=== PATIENT | male | born 1995 | race Caucasian/White ===

== ENCOUNTER 2019-03-05 05:00 | Emergency (ER) | payer OTHER, SELFPAY ==
[2019-03-05 05:00] VITALS: BP 129/82; PULSE 106; RESP 18; TEMP 36.2; O2SAT 99; BMI 24.3
--- NOTE | 2019-03-05 05:19 | ED.VIS.GEN ---
History of Present Illness Chief Complaint: Burn Narrative: Patient is a 23-year-old male who presents with burn and puncture wound to his penis. He suffered an injury from a piece of hot welding wire. It went through his pants and punctured the tip of his penis. There was bleeding. He reports only a single wound. His tetanus is up-to-date. He has otherwise been healthy without any recent illness and denies medical history. Past Medical History - Allergies and Home Meds Allergies/Adverse Reactions: Allergies No Known Allergies Allergy (Verified 03/05/19 05:08) Primary Care Physician: Luis Stoddard,Out of [Primary Care Provider] - Past Medical History: None Smoking Status: Current every day smoker Review of Systems All systems negative except as indicated General: Denies: Fever Cardiovascular: Denies: Chest pain Respiratory: Denies: Dyspnea Gastrointestinal: Denies: Vomiting, Diarrhea Physical Exam Vital Signs/Narrative: Vital Signs Temp Pulse Resp BP Pulse Ox 03/05/19 05:00 97.1 F L 106 H 18 129/82 H 99 Inital Vital Signs reviewed: Yes General: Well nourished Head: Normocephalic Eyes: EOMI ENT: Moist mucous membranes Neck: Supple Cardiovascular: Regular rate Respiratory: No distress : - - Patient has a very small wound to the distal penis. This does not involve the urethral meatus there is no active bleeding no surrounding burn Skin: Normal color Neurological: Alert Psychological: Normal affect Diagnostic/Tx/Re-eval - Medical Decision Making Patient will cleanse the wound himself and he was given bacitracin ointment to apply. He was advised on local wound care. He will be placed on prophylactic antibiotics for puncture wound. He was instructed on specific signs and symptoms to monitor for and does understand to return for new or worsening symptoms. ED Disposition - Plan for ED Patient: Disposition: Home or Assisted Living Diagnosis: Puncture wound of penis Instructions: PUNCTURE WOUND, General Prescriptions: Cephalexin [Keflex] 500 mg PO Q6 #40 cap Prescription Printed Referrals: Luis StoddardOut of [Primary Care Provider] -
[2019-03-05 05:56] VITALS: BP 122/80; PULSE 74; RESP 16; O2SAT 98
== END 2019-03-05 06:06 | disposition home or self-care (01) ==
PROVIDERS: Emergency Provider Emergency Medicine
DX: S31.23XA Puncture wound without foreign body of penis, initial encounter (principal); T21.06XA Burn of unspecified degree of male genital region, initial encounter; X19.XXXA Contact with other heat and hot substances, initial encounter; Y93.9 Activity, unspecified; Y92.9 Unspecified place or not applicable; F17.200 Nicotine dependence, unspecified, uncomplicated
CPT/HCPCS: 99282